=== PATIENT | female | born 1940 | race Caucasian/White ===

== ENCOUNTER 2018-08-11 13:53 | Inpatient (IN) | payer OTHER, BC ==
[~2018-08-11] VITALS: Ht 170.2 cm; Wt 82.6 kg
--- NOTE | ~2018-08-11 | D ---
[facility] [place] [address] DISCHARGE SUMMARY Name: EVANGELISTA COLLIER Room #: 519A-A [facility]#: [id number] Admission: 08/11/18 ������������������ Attend Phys: Vern Pinon DO Discharge: 08/20/18 ������������������ Date of : 42 Report #: [id number] THIS REPORT FOR: //name// CC: Vern Pinon Nidhi Jackson DATE OF SERVICE: 08/20/2018 ATTENDING PHYSICIAN: Vern Pinon DO. BLEACH BOILER PULLER: Abhijit Dickerson MD. DISCHARGE DIAGNOSES: Major neurocognitive disorder likely due Alzheimer disease with behavioral disturbance, improved. MEDICAL COMORBIDITIES: Are as follows: Hypertension, stable; GERD; gait impairment. DISCHARGE MEDICATIONS: Are as follows: Donepezil 10 mg p.o. daily for cognitive enhancement; Depakote 250 mg p.o. b.i.d. for mood stabilization; olanzapine 7.5 mg p.o. b.i.d. for psychosis and mood stabilization; Namenda 5 mg in the morning and 10 mg in the evening for about 3 more days, then switch to 10 mg p.o. b.i.d. for maintenance dose of memantine; potassium chloride 20 mEq p.o. daily of supplementation; Lasix 20 mg p.o. daily for hypertension and edema; chlorthalidone 25 mg p.o. daily for hypertension; polyethylene glycol 17 g p.o. b.i.d.; famotidine 20 mg p.o. daily; polyethylene glycol for constipation. DISCHARGE DIET: Regular. DISCHARGE PLAN: Memory care facility at the [place], [place]. Her son, Kita, is aware of this plan. REASON FOR ADMISSION: Agitation, resisting to care. HOSPITAL COURSE: The patient was admitted to Geriatric Psychiatry Unit. Efforts were made to start her on antipsychotic medication. She initially required intramuscular backup injection. Depakote was started for additional mood stabilization. The patient's Depakote level on this admission was as follows, 38 on the current dose. So there is room to move up, but she is clinically improved enough to reach a lower level of care. Titrated on olanzapine, Depakote. The patient became more reasonable, just required prompting with and did participate in activities and responded to staff direction. The patient tolerated titration of meds. Meeting was held with the son and need for placement was agreed upon. VITAL SIGNS: As follows: Temperature 37.1, pulse 89, BP 158/73. [facility] [address] [place] [address] DISCHARGE SUMMARY Name: EVANGELISTA COLLIER Room #: [address] [place] [address]#: [id number] Admission: 08/11/18 ������������������ Attend Phys: Vern Pinon, Discharge: 08/20/18 ������������������ Date of : 41 Report #: [id number] SIGNIFICANT LABORATORY DATA THIS ADMISSION: From 08/20/2018, CBC: H and H 11.5 and 34.9, otherwise grossly normal, slight monocytosis 9.8%. Chemistry showed a GFR of 44, creatinine 1.2, BUN 46, sodium was 137, potassium 3.8, chloride 102, bicarbonate 28, magnesium 2.1, calcium 9.4, glucose 91. No neuro imaging was done. There was evidently blood culture done ____ no growth over 72 hours for that. MENTAL STATUS EXAMINATION: This is a well-developed, overweight female, appearing at least stated age. Attention limited. Concentration limited. Speech is slow rate. No psychomotor retardation, occasional psychomotor agitation. Mood and affect: Congruent ____ constricted. Denied SI or HI. Denied hopelessness, denied helplessness, denied homicidal intent or plan, denies suicidal intent and plan. Insight limited. Judgment limited. Fund of knowledge below average. Prognosis for this patient is guarded due to her neurodegenerative disorder, need for usp placement. Also, ____ was regarding if she had had electrocardiogram done during her stay, she did not. ��������������������������������������������� ���������������������������������������� By: ��������������������������������������������� 2136 0031 Vern Pinon, DO /nt
[~2018-08-11 13:53] MED LIST: ARICEPT 5 MG TAB5 MG PO; ATIVAN0.5 MG PO; CHLORTHALIDONE25 MG PO; HYDROCODONE-AP1 EAC6 PO; KLOR-CON 1010 MEQ PO; LASIX 20 MG TAB20 MG PO; MEDROLDOSEPACK PO; MIRALAX17 GM PO; NAMENDA 5 MG TAB5 M1 PO; NORCO 5-325 TA1 EACH PO; PAIN RELIEVER500 MG PO; POTASSIUM20 PO; TENORMIN50 MG PO; VOLTAREN GEL 1100 G1 TOP; ZOFRAN ODT4 MG PO; ZYPREXA 5 MG TAB5 M1 PO
[2018-08-11 15:47] VITALS: BP 175/91
--- NOTE | 2018-08-11 17:41 | NUR ---
PT ARRIVES TO FLOOR VIA CART FROM [facility] IN [place] WHERE SHE HAS BEEN HOSPITALIZED SINCE 08/04 WITH DIZZINESS-PRIOR TO ADMIT WAS LIVING IN SONS HOME. UPON ARRIVAL TO UNIT IS NOTED TO BE AGITATED,TALKING RAPIDLY NON-STOP AND CONVERSATION IS CIRCUMSTANTIAL SKIPPING FROM FELICIA CEJA TO HOW THEY WERE FILMING HER AT [facility] AND HOW ON THE RIDE OVER HERE [facility] STAFF WERE TESTING HER TO SEE HOW HER MEMORY WAS. BP INITALLY HIGH ON MACHINE AT 154/92-P-78. RECHECKED MANUALLY AFTER APPROX. 45 MINUTES SPEAKING WITH PT AND SHE WAS CALMER-BP IS 148/84. TRANSFERS WITH SBA X1- NOTED TO HAVE BRUISING TO ANTICUBITAL AREA BILAT. DENIES C/O PAIN
--- NOTE | 2018-08-11 19:17 | NUR ---
BP RECHECK AT 1845 BP 154/99 P122. DENIES HEADACHE/VISUAL DISTURBANCE. DR OCONNELL CONTACTED ORDERS RECEIVED FOR CLONIDINE 0.2MGPO NOW-WILL MONITOR
[2018-08-11 19:58] VITALS: BP 150/92
--- NOTE | 2018-08-12 01:42 | NUR ---
Care assumed of patient at 1900: Patient laying in bed at start of shift. Patient declined to eat HS snack. BP 154/99 and received one time dose of Clonidine 0.2mg po. Patient asked for medications to be crushed because she can't drink any fluids because it will cause her to have to pee. Patient hyperverbal upon initial assessment. Patient paranoid about her son stealing her money and what he is going to spend on it. Calling her son a liar. Patient having disorganized thoughts. Changing the subject frequently. Assessment took quite some time due to her inability to answer yes/no questions. All questions took several minutes with extensive explanations. Patient provided Lorazepam 0.5mg po with her one time Clonidine dose. BP 128/86 at one hour follow up. Patient evaluated by ANNA Macdonald. Progress note dated 08/10/18 reports to d/c Lasix and start Chlorthalidone for HTN. However, orders received to continue Lasix. Lasix put on hold until further evaluation by MD. Nurse approached patient to administer HS medications. Patient argumentative, angry, resistive and noncompliant with taking medication. Patient then attempted to pocket medication and place them in her sheets. Nurse attempted to retrieve medications and patient threw a cup of orange juice on nurse. Medication was marked as refused. At 2130, nurse approached patient to see if she would like to take medications. Patient reluctantly took medication crushed but refused Miralax. Patient was then able to rest quietly in bed until approximately 0100.
[2018-08-12 08:10] VITALS: BP 103/77
--- NOTE | 2018-08-12 15:24 | NUR ---
PATIENT WAS IN BED AWAKE WHEN CARE ASSUMED, SHE DID GET UP FOR BREAKFAST, AND CONSUMED ABOUT 50%. AND WENT BACK TO BED, DECLINE TO PARTICIPATE IN MORNING GROUP. PATIENT TOOK ALL HER MORNING MEDICATION WHOLE IN PUDDING WITHOUT DIFFICULTY. SHE IS ALERT WITH PERIODS OF FORGETFULNESS. PATIENT DENIES SUICIDAL AND HOMOCIDAL IDEATION, SHE RATED BOTH DEPRESSION AND ANXIETY 5/10. AFFECT IS FLAT, MOOD IS DEPRESSED. PATIENT DENIES DIZINESS/HEADACHE. BLOOD PRESSURE 103/63, PULSE 96, 02 SAT 100%, TEMP 97.7. PATIENT'S GOAL TODAT IS TO "GET SOME NAP AND CALL MY GRANDAUGHTER" , CONCERN WAS WHY THERE IS NO PHONE IN THE ROOMS. PATIENT ENCOURAGED TO LET NURSES KNOW WHEN SHE WANTS TO USE THE PHONE, THERE ARE WIRELESS PHONES AVAILABLE ON THE UNIT FOR PATIENTS' USE NO SIGN OF ACUTE DISTRESS NOTED AT THIS TIME, WILL MONITOR FOR SAFETY.
--- NOTE | 2018-08-13 00:15 | H ---
[facility] [address] [address] HISTORY AND PHYSICAL Name: EVANGELISTA COLLIER Room #: 519A-A ADM IN .R.#: [id number] Admission: 08/11/18 ������������������ Attend Phys: Vern Pinon DO Discharge: ������������������ Date of : 42 Report #: [id number] THIS REPORT FOR: //name// CC: Vern Jackson DATE OF SERVICE: 08/11/2018 NEON ELECTRICIAN: Dr. Chavez Mckay. REASON FOR ADMISSION: Transferred from [facility] for confusion and agitation. HISTORY OF PRESENT ILLNESS: This is a 78-year-old female that was admitted 08/04/2018 to [place], [place]. Apparently, the patient has a history of dementia, presented to the ED via EMS with complaints of worsening weakness for the past couple of weeks. For the last 2 days, her dizziness had gotten so bad that she was unable to ambulate or function at all. The patient complains of left knee locking up for years from arthritis. The patient's son reports she lives at home with him. It turns out that she has only been living with him for 2 weeks and he has noticed decreased appetite, decreased fluid intake, and inability to walk to the restroom secondary to the extreme dizziness, it seems to be getting worse. The patient's son states that she was seen in the ER a couple of days ago with a normal workup including CT head. The patient had been using meclizine and scopolamine patch with no relief only getting worse. Son does not believe the patient can take care of herself. In the ER, the patient denied chest pain, shortness of breath, abdominal pain, fever, chills, numbness, tingling, headache, dizziness, or other symptoms. PAST MEDICAL HISTORY: PAST SURGICAL HISTORY: Includes tonsillectomy, right breast tumor, hysterectomy, excision of bone spurs of the neck, left breast tumor x2. MEDICAL PROBLEMS: History of osteoarthritis, sinus problems, torticollis, and hypertension. HOME MEDICATIONS: Potassium 10 mEq p.o. daily, Namenda 5 mg p.o. daily, Lasix 20 mg p.o. daily. ALLERGIES: PENICILLIN, SULFA, and PROMETHAZINE. SOCIAL HISTORY: Denies tobacco or alcohol use. REVIEW OF SYSTEMS: From the hospitalist on 08/11/2018; CONSTITUTIONAL: No symptoms reported. [address] [address] HISTORY AND PHYSICAL Name: EVANGELISTA COLLIER Room #: 519A-A ADM IN [facility] [place] [facility]#: [id number] Admission: 08/11/18 ������������������ Attend Phys: Vern Pinon DO Discharge: ������������������ Date of : 42 Report #: [id number] HEENT: No symptoms reported. RESPIRATORY: Denies. CARDIOVASCULAR: Denies. GASTROINTESTINAL: Feels bloated. GENITOURINARY: Denied. MUSCULOSKELETAL: Denied. SKIN: Denied. NEUROLOGICAL Denied. Otherwise, on brief 10-point denied. She was taken care by Dr. Pacheco at [facility]. DISCHARGE DIAGNOSES: Dizziness, dementia, history of torticollis, hypertension. HOSPITAL COURSE FROM [facility]: She was evaluated for dizziness, failure to thrive at home. Monitored on tele, hydrate improved. She is weak, requires moderate care to perform tasks. Plan discharge to SNF and possibly [facility], so she was admitted to Geriatric Psychiatry. Her son, Victorino, reported to me that her progression then will require some time. He reports that Dr. Patton has established diagnosis of dementia, is interested in placement, unknown amount of education she has had. It looks like she reported that she want to get some nap and "call my grandmother." PHYSICAL EXAMINATION: VITAL SIGNS: Temperature 36.4, pulse 72, respirations 16, BP 103/77, and O2 sat 100%. MUSCULOSKELETAL: She is using a walker. I did not watch her gait. NEUROLOGIC: The patient is a well-developed, disheveled female appearing stated age. She was oriented to person and place, at least grossly to time. Could not know who the loan service officer was, could not do tell me how many nickels were in a dollar. She spelled the word world correctly, cannot do serial sevens correctly. LABORATORY DATA: From today H and H 11.2 and 34.4, white count 8.5, and platelet count 279. Chemistry: Sodium 141, potassium 3.5, chloride 101, bicarbonate 31, anion gap 9, BUN 38, creatinine 1.1, estimated GFR 48, glucose of 88, lactic acid 1.2, calcium 9.0, magnesium 2.2, total bilirubin 0.6, AST 30, ALT 25, alkaline phosphatase 71. CK 37. Troponin less than 0.06. NT-proBNP of 724 that was done on 07/28/2018. Albumin 3.5 and total protein 6.8. B12 942 done on 08/05/2018. TSH 1.359. Toxicology negative. Salicylate is less than 2.8. Alcohol less than 10, done on 07/28/2018. UA on 08/04/2018 showed trace ketones, trace leukocyte esterase, 4-10 squamous epithelial cells, greater than [facility] [address] [place] [address] HISTORY AND PHYSICAL Name: EVANGELISTA COLLIER Room #: 519A-A [facility] IN [facility] [place] [facility]#: [id number] Admission: 08/11/18 ������������������ Attend Phys: Vern Pinon DO Discharge: ������������������ Date of : 41 Report #: [id number] 10 calcium oxalate cells, urine bacteria few, mucus light. Blood culture was no growth at 5 days. MENTAL STATUS EXAM: This is a well-developed disheveled female appearing stated age. Speech is slowed. Thought process is linear and goal directed. Thought content focused on answering questions. No psychomotor agitation or psychomotor retardation. She was recumbent lying in bed with her back. Mood and affect congruent and restricted. No SI. No HI. No helplessness, hopelessness. Memory not formally tested and known to be impaired. Insight impaired. Judgment impaired. Fund of knowledge below average. FORMULATION: A 78-year-old female transferred from [facility], sounds like she needs some mood stabilization. PLAN: Evaluate, stabilize, and keep the patient sleeping well. Evaluate need for mood stabilizer. ESTIMATED LENGTH OF STAY: 7-10 days. STRENGTHS: She is insured. Has a supportive family. WEAKNESSES: Advancing age with a history of neurodegenerative disorder. ��������������������������������������������� <ELECTRONICALLY SIGNED> ���������������������������������������� By: Vern Pinon DO ��������������������������������������������� 08/13/18 0015 1818 07 Vern Pinon, DO /nt
--- NOTE | 2018-08-13 04:27 | NUR ---
Assumed pt care at 1900. A/Ox3,with a lot of complaints about everything going on and she's here by mistake. Pt also paranoid about taking meds stating that they were not prescribed by her DrYvon and she does not have memory problems per another Dr. it's the son's way of getting lid of her. Pt eventually took her HS meds and went to bed,has been resting with eyes closed and no distress noted. Up with RW.Denies pain.Continent of B&B. Will continue to monitor pt.
[2018-08-13 08:00] VITALS: BP 147/73
[2018-08-13 11:00] VITALS: BP 125/76
[2018-08-13 13:31] VITALS: BP 115/72
--- NOTE | 2018-08-13 15:10 | NUR ---
PATIENT HAD A NON-NJURY FALL AT 1145HRS, IN THE DAY ROOM. PATIENT ABLE TO MOVE ALL EXTREMITY WNL. PATIENT DENIES PAIN DURING ASSESSMENT, VSS. PATIENT ASSISTED UP IN CHAIR WITH ASSIST OF TWO STAFF. STAFF REPORTED THAT PATIENT C/O LEFT KNEE PAIN, THIS NURSE OFFERED TO GIVE PATIENT PAIN MEDICINE, PATIENT DECLINE " AM OKAY I DON'T USUALLY TAKE PAIN MEDICINE. MY SON AND HIS BROUGHT ME HERE, AND THEY LEFT ME I AM SUPPOSED TO BE AT [facility]". PATIENT AMBULATED BACK TO ROOM AFTER LUNCH WITH ASSIST OF ANDREW LANDA, GAIT STEADY. PATIENT DECLINE GROUP PARTICIPATION. ALL APPROPRIATE AUTHORITIES NOTIFIED ABOUT PATIENT'S FALL. FAMILY ALSO NOTIFIED. PATIENT TOOK ALL HER MEDICATION WHOLE IN PUDDING. SHE IS EATING MEALS AND DRINKING FLUID WELL. PATIENT REMAIN CONFUSED, IMPULSIVE, AND DISORGANIZED THOUGHT PROCESS. SHE DECLINES GROUP PARTICIPATION. PATIENT CURRENTLY IN BED RESTING, WILL CONTINUE TO ENCOURAGE GROUP PARTICIPATION AND MONITOR FOR SAFETY.
[2018-08-13 19:32] VITALS: BP 108/72
--- NOTE | 2018-08-13 21:22 | NUR ---
ASSUMED CARE OF THE PT AT 191 PM. ALERT ET CONFUSED. TOOK HER HS MEDICATIONS WITHOUT ANY DIFFICULTY. SHE TOOK THEM WHOLE IN YOGURT. DENIES PAIN AT THIS TIME. THIS SOCIAL PROFESSIONALS ASSISTED THE PT TO BED, AND SHE TRANSFERRED WITHOUT ANY DIFFICULTY. DENIES ANXIETY, DEPRESSION, SI/HI, A/V HALLUNICATIONS. DENIES PAIN AT THIS TIME. REMAINS ON 12 MINUTE CHECKS FOR HER SAFETY.
--- NOTE | 2018-08-14 01:53 | NUR ---
THE PT HAS BEEN HAVING TROUBLE SLEEPING THIS NOC SHIFT, CALLS OUT,"NURSE, NURSE." FREQUENTLY. REMAINS ON 12 MINUTE CHECKS FOR HER SAFETY.
--- NOTE | 2018-08-14 05:54 | NUR ---
THE PT SLEPT 8 HOURS LAST NIGHT.
[2018-08-14 07:53] VITALS: BP 138/76
--- NOTE | 2018-08-14 11:42 | NUR ---
ASSUMED PATIENT CARE AT 0700. PATIENT ASSIST TIMES ONE R/T UNSTEADY GAIT AND BALANCE. ATE BREAKFAST, ONLY LISTENED TO GROUP FROM LAST TABLE NEAR ICE MACHINE. STATED SHE COULD HEAR JONATHAN FROM THERE. PATIENT MOVED UP FOR A.M. GOALS GROUP, RESPONDED TO QUESTIONS WHEN SPOKEN TO. C/O ABOUT LEGS HURTING WHEN SITTING UP; NURSE CLARIFIED WITH DR. BOUDREAUX THAT PATIENT'S LOCK OUT SHOULD BE FOR MEALS AND GROUPS. NURSE AGREED TO LET PATIENT LIE DOWN UNTIL LUNCH, WHICH WAS INLY IN 15 MINUTES. HOWEVER, AFTER NURSE ASSISTED TO HER ROOM AND BED, PATIENT STATED THAT SHE DID NOT WANT LUNCH, REFUSED TO GET UP, STATED THAT SHE WOULD EAT DINNER. NURSE CLARIFIED THAT SHE WILL BE ASSISTED UP FOR AFTERNOON GROUPS. FIXED AFFECT, ARGUMENTATIVE FOR MED PASS. NURSE WAS EVENTUALLY ABLE TO ENCOURAGE HER TO TAKE ALL OF HER A.M. MEDICATIONS.
[2018-08-14 19:31] VITALS: BP 135/84
--- NOTE | 2018-08-14 20:40 | NUR ---
PT REFUSED HS MEDICATIONS, SHE ASKED WHAT EACH MEDICATION WAS FOR AND INFORMATION PROVIDED REGARDING MEMORY, MOOD, ANXIETY. PT STATED SHE ONLY TAKES MEDICATIONS FOR HER HEART AND REFUSED MEDICATIONS.
--- NOTE | 2018-08-14 21:02 | NUR ---
PT IN DAYROOM IN W/C WATCHING TV WITH PEERS. TALKED WITH STAFF ABOUT MISSING HER SON, TEARFUL, DISCUSSED BAKING A CAKE WITH VINEGAR. PT ANXIOUS, [facility] CONTACT, WHEN TALKING WITH STAFF. PREVIOUSLY CHARTED PT REFUSED HS MEDS, COMPLIANT WITH HS SNACK.
[2018-08-15 08:43] VITALS: BP 149/87
--- NOTE | 2018-08-15 09:10 | NUR ---
PATIENT WAS EMOTIONAL WHEN APPROACHED EARLY THIS MORNING. BECAME TEARFUL ABOUT BEING ADMITTED HERE. DENIES ANY PSYCHE ISSUES TO WARRANT BEING HERE. DID NOT ATTEMPT TO RETIRE TO ROOM AFTER BREAKFAST. LISTENED ATTENTIVELY DURING AM GROUP - RESPONSIVE TO QUESTIONS ADDRESSED TO HER. FIXATED ON MEDICATIONS AND WHAT AND WHAT NOT SHE SHOULD BE TAKING. REFUSED MOST OF HER MORNING MEDICATIONS AFTER NUMEROUS ATTEMPTS TO ENCOURAGE IMPORTANCE OF COMPLIANCE. TOOK POTASSIUM AND CHLORTHALIDONE 25 MG. BUT ADAMANTLY REFUSED REMAINDER OF PILLS. WILL CONTINUE TO ENCOURAGE MEDICATION COMPLIANCE -
[2018-08-15 10:21] VITALS: BP 149/87
--- NOTE | 2018-08-15 16:13 | NUR ---
DRU left a voicemail for pt concerning family meeting. DRU provided contact information and requested a phone call back. DRU provided two times for the FM on Saturday, August 18, 2018 at 11:00am or 2:00pm.
--- NOTE | 2018-08-15 19:25 | NUR ---
ASSUMED CARE OF THE PT AT 191 PM. ALERT ET ORIENTED X 3. MAKES NEEDS KNOWN. IS LYING IN BED WHEN THIS PURCHASING SUPERVISOR CAME ON DUTY. HEART RATE REGULAR. LUNGS CLEAR BILATERALLY. DENIES PAIN AT THIS TIME. REMAINS ON 12 MINUTE CHECKS FOR HER SAFETY.
[2018-08-15 19:31] VITALS: BP 158/85
--- NOTE | 2018-08-15 21:41 | NUR ---
THE PT TOOK ALL OF HER MEDICATIONS EXCEPT FOR HER MARILAX. SHE TOOK THEM IN APPLESAUCE, ONE AT A TIME. REMAINS ON 12 MINUTE CHECKS FOR THE PT'S SAFETY.
--- NOTE | 2018-08-16 02:45 | NUR ---
THE PT HAS BEEN UP TO THE BATHROOM TWICE SO FAR THIS SHIFT. DENIES PAIN EARLIER IN THE SHIFT. REMAINS ON 12 MINUTE CHECKS FOR HER SAFETY.
[2018-08-16 08:11] VITALS: BP 140/77
--- NOTE | 2018-08-16 11:12 | NUR ---
DRU spoke with son and he reported that he wanted the referral sent to Gaurav Horn, Kyung Horn and palomo at the [facility]. DRU asked about the others and he stated he did not know about those. DRU sent referrals to the communities that he requested. He reported that he had submitted the medicaid application. He also confirmed that he would like the 11am 7/ family meeting time. SW reported this to the weekday sw. Pt's son would like a 2 step TBtest done while she is in [facility]. Dru passed this along to the nursing.
--- NOTE | 2018-08-16 13:59 | NUR ---
Date of Admission: 08/11/18 Date of Activity Therapy Assessment:08/14/2018 Activity Goal:Two groups per day Initial Goal:Pt will participate in two recreational therapy groups per day. patient will identify two coping skills to aid in anxiety by the time of discharge. Weekly progress towards goal: Did not achieve goal Group participation level: moderate Behaviors observed: Participation was lacking at the beggingin of the week. Pt would go back to bed during groups. Participation levels increases as the week went on. Pt was in a bright and cheerful mood and encouraging of her peers. Pt enjoys exercise groups. Pt has positive social interactions and easily engages in conversation. Pt is very focused on mandaen. Plan: No change towards goal
--- NOTE | 2018-08-16 15:32 | NUR ---
PATIENT WAS IN BED WHEN CARE ASSUMED, ASSISTED OUT OF BED BY THIS RN. PATIENT TOOK HER MORNING MEDICATION WHOLE, REFUSED MIRALAX, " I ALREADY HAVE BOWEL MOVEMENT TODAY". PATIENT CONSUMED 100% BREAKFAST, DECLINE LUNCH, HAD ICE CREAM. PATIENT PARTICIATED IN MORNING GROUP, REFUSED TO ATTEND SUBSEQUECE GROUPS. AFFECT IS FLAT, TANGENTIAL, MOOD DEPRESSED. PATIENT DENIES SUICIDAL AND HOMOCIDAL IDEATION. NO AGITATION OR AGGRESSIVE BEHAVIOR NOTED AT THIS TIME, WILL CONTINUE TO ENCOURGE PARTICIPATING IN GROUP THERAPY, AND MONITOR FOR SAFETY.
[2018-08-16 19:43] VITALS: BP 136/86
[2018-08-17 01:26] VITALS: BP 136/86
--- NOTE | 2018-08-17 05:06 | NUR ---
PT OUT WITH PEERS EARLY IN SHIFT, BUT ON THE EDGE OF THE GROUP. TOOK HS MEDS W/O PROBLEM. UP X1 TO BS COMMODE TO URINATE. SLEPT WELL THROUGH THE NIGHT.
--- NOTE | 2018-08-17 09:16 | NUR ---
ASSUMED PATIENT CARE AT 0700. AMBVULATED PER SELF TO D.R. FOR BREAKFAST. ATE 50% OF MEAL; NURSE ABLE TO SUCCESSFULLY ADMINISTERED A.M. MEDICATIONS WITH MUCH ENCOURGEMENT, TOOK IN YOGURT. ATTENDING R.T. GROUP AT THIS TIME.
[2018-08-17 09:21] VITALS: BP 151/90
[2018-08-17 15:12] VITALS: BP 151/90
[2018-08-17 20:22] VITALS: BP 140/82
--- NOTE | 2018-08-17 22:37 | NUR ---
ASSUMED CARE @ 1900. IN ROOM IN BED. ASSISTED TO TOILET, AND TO W/C WHERE SHW PROPELLED SELF TO DAY ROOM FOR A SNACK. TOOK HS MEDICATIONS WITH GREAT ENCOURAGEMENT ONLY AFTER BEING EXPLAINED WHAT EACH ONE WAS FOR AND HER SAYING THAT SHE ONLY WANTED TO TAKE HER HIGH B/P AND POTASSIUM MEDS. ENCOURAGED TO ALSO TAKE HER MEMATINE, WITH AN EXPLAINATION OF THE BENEFITS OF IT. DENIES HI, SI AND HALLUCINATION. ASSISTED TO CALL SON, FELICIA. GOT THE ANSWERING MACHINE, AND PT LEFT A MESSAGE FOR SON TO CALL HER. RETURNED TO BED AFTER SNACKS. WILL CONTINUE TO MONITOR Q 12 MINUTES FOR PT SAFETY.
[2018-08-18 00:49] VITALS: BP 140/82
--- NOTE | 2018-08-18 06:26 | NUR ---
SLEPT 7.6 HOURS OVERNIGHT.
[2018-08-18 08:20] VITALS: BP 135/70
--- NOTE | 2018-08-18 10:17 | NUR ---
cm received phone call from karin at [facility] p # [phone], f # [phone] stated referral was sent but needing updated information and demographics sent."karin. iona provided karin with [phone] and transferred call to ext [phone]. cm sent sw message.
[2018-08-18 15:18] VITALS: BP 135/70
--- NOTE | 2018-08-18 15:34 | NUR ---
ASSUMED CARE AT 0700 THIS MORNING. PT. INITIALLY RESISTIVE TO TAKING HER MORNING MEDICATIONS. THIS RN SAT WITH HER AND TALKED TO HER ABOUT EACH MED AND NEED TO TAKE THEM, SHE FINALLY TOOK THEM. SHE HAS A TENDENCY TO CHEEK HER MEDICATIONS. TWO PILLS WERE FOUND UNDER HER PILLOW TODAY WHEN STAFF WAS MAKING HER BED. SHE ATE MEALS ON THE UNIT AND SAT IN ON GROUPS. SHE HAS REMAINED VERY NICE TO STAFF. SHE DENIES SI/HI AND AVH. HAS NOT BEEN NOTED TALKING TO HERSELF.
--- NOTE | 2018-08-18 20:20 | NUR ---
ASSUMED CARE @ 1900. IN BED WITH WASH CLOTH OVER EYES. RESPONDS TO VOICE AND TAKES WASH CLOTH OFF FACE AND COOPERATES WITH ASSESSMENT. DENIES SI, HI, DENIES ALL PSYCHIATRIC PROBLEMS. SAYS SHE DOES NOT LIKE HER MORNING MEDS, THAT THEY MAKE HER SEE DOUBLE. DEEP CRACK IN LIP, LIP BALM PROVIDED. WILL CONTINUE TOMONITOR Q 12 FOR PATIENT SAFETY.
--- NOTE | 2018-08-18 23:59 | NUR ---
HS MEDS TAKEN WITH MUCH ENCOURAGEMENT AND EXPLAINATION OF PURPOSE OF EACH MED. TOILETED ON THE BEDSIDE COMODE, VOIDED URINE OUTPUT ONLY. DENIES NEED FOR MENTAL HEALTH MEDICATIONS. WILL CONTINUE TO MONITOR Q 12 MINUTES FOR PATIENT SAFETY.
[2018-08-19 03:59] VITALS: BP 142/75
[2018-08-19 05:51] VITALS: BP 142/75
--- NOTE | 2018-08-19 05:53 | NUR ---
REPORTS SHE SLEPT REAL WELL. SLEPT 10.2 HOURS TOTAL OVERNIGHT.
[2018-08-19 08:41] VITALS: BP 140/64
--- NOTE | 2018-08-19 17:03 | NUR ---
DRU spoke with Tasia at [facility] concerning pt been accepted into [facility]. Pt will be d/c on August 20, 2018. Pt will be transported by [facility].
--- NOTE | 2018-08-19 18:41 | NUR ---
HAS REMAINED RESISITVE WITH TAKING PSYCHIATRIC MEDICATIONS OR ACKNOWLEDING ANY PSYCHIATRIC DX STATING "I DON'T HAVE ANY SORT OF MOOD ISSUE- I DON'T TRUST THAT PSYCHIATRIST" DID TAKE AM ZYPREXA BUT REFUSED DEPAKOTE . HAS BEEN ATTENDING SCHEDULED ACTIVITIES AND WILL PARTICIPATE WITH MINIMAL PROMPTING-TEARFUL X 2 DURING AM GROUP MOSTLY WHEN SPEAKING ABOUT [facility],REMAINS RELIGIOUSLY PREOCCUPIED. TRANSFERS WITH SBA X1-CONTINENT OF BOWEL AND BLADDER. DOES REPORT LEFT KNEE PAIN BUT REFUSES ANY OFFERS OF ANY MEDICATIONS IE TYLENOL ETC.
[2018-08-19 19:55] VITALS: BP 158/73
--- NOTE | 2018-08-19 20:59 | NUR ---
Pt resting in bed upon arrival to unit. Pt discussed medications with nurse prior to compliance. Pt refused depakote stating she was told it was for seizures and she does not have seizures. Pt also denied concerns with memory and shared with nurse the different memory tests she has completed. Pt stated she does not want to take psych meds because she does not want bad dreams, or to end up like her friends who have taken drugs. Pt was tearful during this conversation. Pt stated her son has found an [place] apartment for her upon discharge. Pt discussed how her l knee locks up on her and she has to take steps one at a time. Pt able to answer ox4 questions.
[2018-08-20 05:30] LABS: ABSOLUTE NEUTROPHILS 4.2 thou/uL (1.4-8.2); BASOPHILS 0.9 % (0.0-2.0); EOSINOPHILS 1.9 % (0.0-3.0); HEMATOCRIT 34.9 % (37.0-47.0); HEMOGLOBIN 11.5 gm/dL (12.0-15.0); LYMPHOCYTES 30.5 % (24.0-44.0); MCH 26.5 pg (26.0-34.0); MCHC 32.8 g/dL (28.0-37.0); MCV 80.9 fL (80.0-100.0); MONOCYTES 9.8 % (1.0-8.0); PLATELET COUNT 287 thou/uL (150-400); POLYS 56.9 % (36.0-66.0); RBC 4.32 mil/uL (4.20-5.00); RDW 16.5 % (10.5-14.5); WBC 7.3 thou/uL (4.0-11.0)
[2018-08-20 05:43] LABS: CALCIUM 9.4 mg/dL (8.5-10.1); CREATININE 1.2 mg/dL (0.6-1.0); MAGNESIUM 2.1 mg/dL (1.8-2.4); POTASSIUM 3.8 mmol/L (3.5-5.1)
[2018-08-20 08:00] VITALS: BP 142/88; BP 158/73
--- NOTE | 2018-08-20 10:08 | NUR ---
ASSUMED PT CARE AT 0700. NM IS AOX3 FORGETFUL. FLAT AFFECT. AMBULATES VIA WHEELCHAIR. ON RA. VSS. TAKES MEDUCATION WITH MILK. PARTICIPATED IN GROUPS. PT IS CONTINENT. REFUSES MIRALAX. WILL CONTINUE TO MONITOR PT
--- NOTE | 2018-08-20 11:00 | NUR ---
Patient Name: EVANGELISTA COLLIER Admission Date: 08/11/18 DISCHARGE PLAN: Pt will be d/c to [facility]. Care Assessment: Pt was assessed by Dr. Pinon, and diagnosed with Major Neurocognitve Disorder with Behavior Disturbance. Level II Assessment: None Transportation: Pt will be transportation by [facility] staff. Special Instructions/Notes: Pt will need rehab services, and memory care unit. DISCHARGE TO FACILITY: Memory Care Unit Facility: [facility] Fax: Address: [address] [place] [id number] Contact Name: Tasia PCP: ADAM Psychiatrist: KELLY Psychiatrist
[2018-08-20] MEDS ORDERED: ARICEPT10 MG PO (11:15)
[2018-08-20] MEDS ORDERED: DEPAKOTE 250MG250 M1 PO (11:16)
[2018-08-20] MEDS ORDERED: ZYPREXA 5 MG TAB5 M1 PO (11:17)
[2018-08-20] MEDS ORDERED: NAMENDA 5 MG TAB5 M1 PO ×2 (11:17→11:27)
[2018-08-20] MEDS ORDERED: K-DUR 20 MEQ T20 MEQ PO (11:18)
[2018-08-20] MEDS ORDERED: CHLORTHALIDONE25 MG PO (11:19)
[2018-08-20] MEDS ORDERED: LASIX 20 MG TAB20 MG PO (11:19)
[2018-08-20] MEDS ORDERED: MIRALAX17 GM PO (11:19)
[2018-08-20] MEDS ORDERED: PEPCID20 MG PO (11:20)
--- NOTE | 2018-08-20 14:04 | NUR ---
PT LEFT FLOOR TO [facility] ACCOMPANIED BY TRANSPORTER ON WHEELCHAIR. NO BELONGINGS. DC PAPER GIVEN TO TRANSPORTERE
== END 2018-08-20 14:06 | DRG 57 ==
LOC: SBH 13:53
PROVIDERS: Nurse Practitioner; ADMIT Psychiatry & Neurology Psychiatry
DX: G30.9 Alzheimer's disease, unspecified (principal); F02.81 Dementia in other diseases classified elsewhere, unspecified severity, with behavioral disturbance; I10 Essential (primary) hypertension; K21.9 Gastro-esophageal reflux disease without esophagitis; M19.90 Unspecified osteoarthritis, unspecified site; R26.9 Unspecified abnormalities of gait and mobility; F41.9 Anxiety disorder, unspecified; Z96.1 Presence of intraocular lens; Z90.710 Acquired absence of both cervix and uterus; Z79.899 Other long term (current) drug therapy; Z98.41 Cataract extraction status, right eye; Z88.0 Allergy status to penicillin; Z88.2 Allergy status to sulfonamides; Z88.8 Allergy status to other drugs, medicaments and biological substances
CPT/HCPCS: 10880